=== PATIENT | female | born 1970 | race Two or more races ===

== ENCOUNTER → 2019-05-24 | Day surgery (SDC) | payer OTHER ==
[~2019-05-24] MED LIST: BUPIVACAINE 0.5 % PF 150 MG/30 ML VIAL ONE; BUPIVACAINE MPF W/EPI 0.25% 30 ML VIAL ONE; CLINDAMYCIN 900 MG/6 ML VIAL ONE; EPINEPHRINE (1:1000) 1 MG/ML AMPUL ONE; FAMOTIDINE/PF INJ 20 MG/2 ML VIAL IV ONE; FENTANYL PF 100MCG/2ML AMPUL ONE; FENTANYL PF 250MCG/5ML AMPUL ONE; GLYCOPYRROLATE 0.2 MG/ML VIAL ONE; HYDROCODONE/APAP 10/325MG 1 EA TABLET ONE; MIDAZOLAM HCL 2 MG/2ML VIAL ONE; MORPHINE SULFATE/PF 10 MG/10ML (1MG/ML) AMPUL ONE; ROCURONIUM BROMIDE 50 MG/5 ML ONE
[2019-05-24 18:30] VITALS: BP 116/66
--- NOTE | 2019-05-24 18:30 | NUR ---
DAY SURGERY OBS NOTE PT ARRIVED TO RM 309-1 FOR OBSERVATION VIA GURNEY IN MEDICALLY STABLE CONDITION. PT CAME FROM OR FOR RIGHT SHOULDER ARTHROSCOPY, MEPILEX NOTED ON RIGHT SHOULDER. PER OR STAFF, PT WILL BE DISCHARGED IN A COUPLE HOURS BY FRIEND. PT IS A/O X4, AFEBRILE, EASILY AROUSABLE. RESPIRATIONS ARE EVEN AND UNLABORED, NOT IN ANY ACUTE DISTRESS NOTED. PT DENIES ANY PAIN AT THIS TIME, NO C/O SOB, N/V. NO FURTHER SKIN ISSUES NOTED. SKIN IS KEPT CLEAN AND DRY, INTACT. GAVE WARM BLANKETS PER PT'S REQUEST. VITAL SIGNS TAKEN: BP 116/66, P80, R18, TEMP 97.5, O2 SAT 97% ON RA. INSTRUCTED PT TO USE CALL LIGHT WHEN ASSISTANCE IS NEEDED, CALL LIGHT IS LEFT WITHIN REACH. WILL MONITOR THROUGHOUT SHIFT FOR CONTINUITY OF CARE.
--- NOTE | 2019-05-24 19:35 | NUR ---
RN NOTES RECEIVED PATIENT ASLEEP, CALM RESTING COMFORTABLY, NO APPARENT SIGNS OF DISTRESS, S/P RIGHT SHOULDER ARTHROPLASTY UNDER DR. ELIZABETH. PATIENT IS READY FOR DISCHARGE PER MD ORDERED AND ENDORSED BY AM NURSE MCDOWELL. SAFETY MEASURES IN PLACE, CALL LIGHT WITHIN EASY REACH, WILL CONTINUE TO MONITOR ACCORDINGLY.
--- NOTE | 2019-05-24 20:00 | NUR ---
cattle dehorner notes: approached by srinivas esparza, pt c/o 03/30 pain , s/p right shoulder arthroplasty by dr nelson this afternoon 05/24, written order to give prn norco 10/325 mg , 1 tab po for pain, written order was faxed (no time indicated), srinivas esparza spoked to pharmacist misbah, as pt not in the system (admission) still under day surgery status, explained the situation. per pharmacist misbah, to override the order. norco 10/325 mg, 1 tab override at this time.
--- NOTE | 2019-05-24 20:00 | NUR ---
RN NOTES PATIENT COMPLAINTS OF SEVERE RIGHT SHOULDER PAIN, 03/30, PATIENT IS NOT IN THE SYSTEM IN PATIENT, SEARCHED GLOBAL SYSTEM, CALLED AND SPOKE TO FEMI OF PHARMACY DEPARTMENT, WAS INSTRUCTED TO GO CHECK THE GLOBAL LIST IN THE OMNICELL TO GET THE PRN NORCO 10 MG PO PRN ORDERED BY DR. ELIZABETH. WILL INFORM CHARGE NURSE TO OVERRIDE MED ORDER PER FEMI.
--- NOTE | 2019-05-24 20:25 | NUR ---
RN NOTES PRN NORCO 10 MG PO GIVEN FOR C/O RIGHT SHOULDER PAIN, 8/10 PAIN SCALE. ICE PACK ON RIGHT SHOULDER IN PLACED PER MD ORDER, SAFETY MEASURES IN PLACE. REPOSITIONED FOR COMFORT, CALL LIGHT WITHIN EASY REACH. WILL MONITOR ACCORDINGLY.
--- NOTE | 2019-05-24 20:30 | NUR ---
RN NOTES PATIENT'S FRIEND CHEYANNE AT BEDSIDE AT THIS TIME, GETTING READY TO DISCHARGE PATIENT, PATIENT IS REQUESTING TO HAVE THE HOME MEDICATION PRESCRIPTION NORCO READY TO SUPERVISOR CONDITIONING YARD AT HER PHARMACY OF CHOICE ( [facility] [address] [address] [facility] ). CALLED AND LEFT MESSAGE TO DR. ELIZABETH'S OFFICE # , TO OBTAIN A NARCOTIC ORDER PRESCRIPTION FOR DISCHARGE, NO ANSWER YET. INFORMED CHARGE NURSE ENMA, ABOUT THE SITUATION. CALLED [facility] ON-CALL DAYO SLOAN NP TO ASK IF IT IS POSSIBLE TO HAVE HIM ORDER THE HOME PRESCRIPTION MEDICATION ORDER NORCO FOR PATIENT, PER NAVEED GLASER MAHDI IS NOT PART OF THEIR PATIENTS' LIST, BUT A COURTESY, TRYING TO HELP OUT, HE GAVE HIS CAYETANO #NUMBER.
--- NOTE | 2019-05-24 20:40 | NUR ---
RN NOTES CALLED [facility] TO ORDER MEDICATION FOR MILL WORK, SPOKE TO STEVE, PER STEVE, [facility] ARE NOT ACCEPTING NARCOTIC TELEPHONE ORDER, CHARGE NURSE ENMA MADE AWARE.
--- NOTE | 2019-05-24 21:00 | NUR ---
RN NOTES KEEP PATIENT CALM AND RESTING COMFORTABLY, PATIENT WOULD RATHER WANT TO STAY OVERNIGHT WHILE WAITING FOR THE NARCOTIC PRESCRIPTION . ALL NEEDS ANTICIPATED, SAFETY MEASURES IN PLACE, CALL LIGHT WITHIN EASY REACH.
--- NOTE | 2019-05-24 22:30 | NUR ---
RN NOTES: CONTACTED DR ELIZABETH AT [phone], DIRECTED THROUGH A VOICEMAIL, LEFT A MESSAGE , AWAITING FOR CALL BACK
--- NOTE | 2019-05-24 22:54 | NUR ---
RN NOTES STILL AWAITING FOR RESPONSE FROM DR. ELIZABETH'S OFFICE AND ON-CALL MD, CHARGE NURSE MADE AWARE, INFORMED NURSING HUMAN SERVICES CARE SPECIALIST WOODROW REGARDING THE SITUATION, WOODROW WILL NOTIFY ROWAN REGARDING PATIENT'S WILLINGNESS TO STAY OVERNIGHT FOR PAIN MANAGEMENT, WHILE WAITING FOR A TRIPLICATE NARCOTIC ORDER PATIENT DOESN'T WANT TO GO HOME WITHOUT THE HOME MEDS PRESCRIPTION, UPDATED AND INFORMED PATIENT REGARDING PLAN OF CARE. PATIENT IS RESTING COMFORTABLY AT THIS TIME, FRIEND CHEYANNE IS AT BEDSIDE. WILL CONTINUE TO MONITOR.
--- NOTE | 2019-05-25 00:08 | NUR ---
RN NOTES ABLE TO OBTAIN A TRIPLICATE ORDER FORM OF NORCO 10MG TAB PRN ORDER FOR PAIN FROM DAYO SLOAN NP. CALLED [facility] [id number] [facility] [address] , IN [place], [place] [address]IJ CHECK IF MEDICATION IS AVAILABLE, SPOKE TO PAUL, AND CONFIRMED THYAT THEY HAVE NORCO AVAILABLE. INFORMED PATIENT, PATIENT WANTS TO GO HOME AND REST, FRIEND CHEYANNE IS AT BEDSIDE. ASSESSED VITAL SIGNS BP133/64; HR61;RR18; TEMP97.7;02 SAT 98% ON ROOM AIR, ALL NEEDS ATTENDED, DISCHARGED INSTRUCTION SIGNED AND GIVEN TO PATIENT, VERBALIZES UNDERSTANDING.
--- NOTE | 2019-05-25 00:54 | NUR ---
RN NOTES IV ACCESS REMOVED, LEFT THE UNIT MEDICALLY STABLE, 05/24/19 AT 0054. CHARGE NURSE AWARE OF DISCHARGE.
== END | disposition home or self-care (01) ==
LOC: DS 10:01
PROVIDERS: ATTEND Orthopaedic Surgery
DX: M75.41 Impingement syndrome of right shoulder (principal); M19.011 Primary osteoarthritis, right shoulder; J45.909 Unspecified asthma, uncomplicated; D64.9 Anemia, unspecified; E78.5 Hyperlipidemia, unspecified
CPT/HCPCS: 29822; 29824; 84703; 88304; 88311; J0171; J2250; J2274; J2405; J2704; J2710; J2765; J3010 ×2; J3490 ×6; J7050; A4217; A4565; A6209